=== PATIENT | male | born 1960 | race Caucasian/White ===

== ENCOUNTER 2016-11-03 07:13 | Inpatient (IN) | payer SELFPAY ==
[2016-11-03] MEDS ORDERED: Sodium Chloride 0.9% 500 ML IV STA (07:51)
[2016-11-03] MEDS ORDERED: DiphenhydrAMINE 50 mg/ml Inj IVP STA (07:52)
[2016-11-03 08:00] LABS: BASO % 0.1 % (0.0-2.0); EOS # 0.2 K/uL (0.0-0.7); EOS % 2.2 % (0.0-4.0); HEMATOCRIT 38.2 % (35.0-51.0); LYMPH # 1.1 K/uL (1.0-4.3); MEAN CELL VOLUME 93.6 fL (80.0-94.0); MEAN CORPUSCULAR HEMOGLOBIN 31.6 pg (27.0-31.0); MEAN CORPUSCULAR HGB CONC 33.8 g/dL (33.0-37.0); MONO # 1.3 K/uL (0.0-0.8); MONO % 11.4 % (0.0-10.0); RED CELL DISTRIBUTION WIDTH 13.1 % (11.5-14.5); WHITE BLOOD COUNT 11.1 K/uL (4.8-10.8)
[2016-11-03] MEDS ORDERED: Sodium Chloride 0.9% 1,000 ML ONE (08:00)
[2016-11-03] MEDS ORDERED: DiphenhydrAMINE 50 mg/ml Inj ONE (08:00)
[2016-11-03 08:09] LABS: INR 1.1
[2016-11-03 08:35] LABS: CHLORIDE 104 mmol/L (98-107); POTASSIUM 4.2 mmol/L (3.6-5.2); SODIUM 141 mmol/L (132-148)
--- NOTE | 2016-11-03 08:35 | C.PDOC ---
History Of Present Illness 56-year-old male, presents to the emergency department with complaints of chest pain. Patient states he developed left-sided chest pain that started forty- minutes. Pain is persistent in nature, and radiates into the left arm. Patient states that he recently started taking three new medications, and yesterday evening, he developed hives diffusely. Patient notes he is pending angioplasty next week by Dr South. Denies shortness of breath, fevers, nausea/vomiting, or any other associated symptoms. No other complaints at this time. Chief Complaint (Nursing): Chest Pain History Per: Patient History/Exam Limitations: no limitations Severity: Moderate Past Medical History Reviewed: Historical Data, Nursing Documentation, Vital Signs Vital Signs: Last Vital Signs Temp 98.0 F 11/03/16 16:55 Pulse 78 11/03/16 16:55 Resp 20 11/03/16 16:55 BP 117/71 11/03/16 16:55 Pulse Ox 97 11/03/16 16:55 - Medical History PMH: Back Problems (herniated disc), HTN, Hypercholesterolemia, Kidney Stones Surgical History: Coronary Stent (10/2016) - [facility] Procedures FLUOROSCOPY OF LEFT HEART USING LOW OSMOLAR CONTRAST (10/26/16) FLUOROSCOPY OF MULT COR ART USING L OSM CONTRAST (10/26/16) MEASURE OF CARDIAC SAMPL & PRESSURE, L HEART, PERC APPROACH (10/26/16) Family History: States: [place] (mother at 82), Hypertension (father) - Social History Hx Tobacco Use: Yes Hx Alcohol Use: No Hx Substance Use: Yes (Marijuana) - Immunization History Hx Influenza Vaccination: No Hx Pneumococcal Vaccination: No Review Of Systems Except As Marked, All Systems Reviewed And Found Negative. Constitutional: Negative for: Fever, Chills Cardiovascular: Positive for: Chest Pain Respiratory: Negative for: Shortness of Breath Gastrointestinal: Negative for: Nausea, Vomiting Skin: Positive for: Rash Physical Exam - Physical Exam Appears: Non-toxic, No Acute Distress Skin: Warm, Dry, Rash (generalized urticaria) Head: Atraumatic, Normacephalic Eye(s): bilateral: Normal Inspection, PERRL Nose: Normal Oral Mucosa: Moist Lips: Normal Appearing Neck: Normal ROM Cardiovascular: Rhythm Regular, No Murmur Respiratory: Normal Breath Sounds, No Accessory Muscle Use Gastrointestinal/Abdominal: Soft, No Tenderness Extremity: Normal ROM, Other (R arm volar surface w forearm echymosis from prior procedure) Neurological/Psych: Oriented x3, Normal Speech ED Course And Treatment - Laboratory Results Result Diagrams: 11/03/16 07:55 11/03/16 08:21 ECG: Interpreted By Me, Viewed By Me ECG Rhythm: Sinus Rhythm ECG Interpretation: No Acute Changes Rate From EC O2 Sat by Pulse Oximetry: 96 (on RA) Pulse Ox Interpretation: Normal Progress Note: Case was d/w who covers for . Cardiology consult was called. Disposition - Disposition Disposition: HOSPITALIZED Disposition Time: 13:09 Condition: FAIR - Clinical Impression Clinical Impression: Chest pain, Urticaria - Scribe Statement The provider has reviewed the documentation as recorded by the Scribe (Shady Condon) All medical record entries made by the Scribe were at my direction and personally dictated by me. I have reviewed the chart and agree that the record accurately reflects my personal performance of the history, physical exam, medical decision making, and the department course for this patient. I have also personally directed, reviewed, and agree with the discharge instructions and disposition.
[2016-11-03 08:37] LABS: BILIRUBIN,TOTAL 0.6 mg/dL (0.2-1.3); GFR AFRICAN-AMERICAN > 60
[2016-11-03 08:38] LABS: ALB/GLOB RATIO 1.2 (1.0-2.1); ALKALINE PHOSPHATASE 77 U/L (38-126); ALT/SGPT 31 U/L (21-72); AST/SGOT 20 U/L (17-59); BLOOD UREA NITROGEN 11 mg/dL (9-20); CALCIUM 8.4 mg/dl (8.6-10.4); CARBON DIOXIDE 23 mmol/L (22-30); GLUCOSE,RANDOM 100 mg/dL (75-110); TOTAL PROTEIN 6.5 g/dL (6.3-8.3)
--- NOTE | 2016-11-03 09:06 | RAD ---
PROCEDURE: CHEST RADIOGRAPH, 1 VIEW HISTORY: Chest pain COMPARISON: 10/24/2016. FINDINGS: LUNGS: The lungs are well inflated and clear. PLEURA: No pneumothorax or pleural fluid seen. CARDIOVASCULAR: Normal. OSSEOUS STRUCTURES: No significant abnormalities. VISUALIZED UPPER ABDOMEN: Normal. OTHER FINDINGS: None. IMPRESSION: No active pulmonary disease.
--- NOTE | 2016-11-03 15:10 | CP.PCM.CON ---
<ReginaldodeeNorbertoZack S - Last Filed: 11/03/16 16:20> History of Present Illness - History of Present Illness History of Present Illness: Mr. Ivory is 56 yo gentleman with a PMHx of nephrolithiasis and herniated disc who was recently admitted to and discharge from [facility] in October of 2016. He originally presented to the ED complaining of midsternal chest pain that had acutely worsened. He described his chest pain as a burning sensation with radiation to the neck. He also complained of sharp, intermittent moderate left arm pain and tingling in both hands associated with the chest pain. He was worked up extensively during his last admission to [facility] , which ultimately resulted in cardiac cath identification of 99% occlusion of L circumflex artery and 85-90% occlusion of RCA. He was transferred to [place], where a CAROLIN was placed in the L circumflex artery. Mr. Ivory was discharged home on 10/30/2016. He is returning to [facility] today due to chest pain. He states that the pain started yesterday and is present both at rest and with ambulation. He states the pain radiates into the left upper extremity. He denies any shortness of breath, fever, chills, nausea vomiting. Additionally Mr. Ivory is exhibiting a diffuse, macular rash on the torso, upper extremities and neck. He admits that they are pruritic as well. He states that the rash started yesterday and appear to be improving since he received benadryl. He believes they are medication induced. PMD: Dr. 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 Drinks 3-4 cups of coffee daily Review of Systems - Constitutional Constitutional: As Per HPI - Cardiovascular Cardiovascular: As Per HPI, Chest Pain, Chest Pain at Rest, Pain Radiating to Arm/Neck/Jaw. absent: Dyspnea - Respiratory Respiratory: As Per HPI. absent: Dyspnea - Gastrointestinal Gastrointestinal: absent: Abdominal Pain, Change in Bowel Habits, Constipation, Diarrhea - Integumentary Integumentary: As Per HPI, Pruritus, Rash - Neurological Neurological: Tingling (tingling and paraesthesia of the left arm/hand). absent : Dizziness, Focal Weakness Past Patient History - Infectious Disease Hx of Infectious Diseases: None - Past Medical History & Family History Past Medical History?: Yes - Past Social History Smoking Status: Former Smoker (quit 1 week ago) - CARDIAC Hx Cardiac Disorders: Yes (CAD) Hx Circulatory Problems: Yes Hx Hypercholesterolemia: Yes Hx Hypertension: Yes - RENAL Hx Kidney Stones: Yes - MUSCULOSKELETAL/RHEUMATOLOGICAL Hx Falls: No - PSYCHIATRIC Hx Substance Use: Yes (Marijuana) - SURGICAL HISTORY Hx Coronary Stent: Yes (10/2016) - ANESTHESIA Hx Anesthesia: Yes Hx Anesthesia Reactions: No Hx Malignant Hyperthermia: No Meds Allergies/Adverse Reactions: Allergies Allergy/AdvReac Type Severity Reaction Status Date / Time Iodinated Contrast- Oral and Allergy RASH Verified 11/05/16 10:54 IV Dye clopidogrel AdvReac RASH Verified 11/04/16 15:28 - Medications Medications: Plavix 75mg daily ASA 81mg daily Lipitor 40mg daily Metoprolol Tar 25mg BID Pepcid Physical Exam - Constitutional Appears: No Acute Distress - Head Exam Head Exam: ATRAUMATIC, NORMAL INSPECTION - Eye Exam Eye Exam: EOMI, Normal appearance - ENT Exam ENT Exam: Mucous Membranes Moist - Respiratory Exam Respiratory Exam: Clear to Auscultation Bilateral, NORMAL BREATHING PATTERN. absent: Chest Wall Tenderness, Rales, Rhonchi, Wheezes - Cardiovascular Exam Cardiovascular Exam: REGULAR RHYTHM, +S1, +S2. absent: Gallop, Rubs - GI/Abdominal Exam GI & Abdominal Exam: Soft. absent: Distended, Tenderness - Extremities Exam Extremities exam: Positive for: normal inspection. Negative for: calf tenderness, pedal edema - Neurological Exam Neurological exam: Alert, Oriented x3 - Skin Skin Exam: Rash (As per HPI- diffuse, macular, pruritic, non-blanching rash on torso, arms, and neck) Results - Vital Signs Recent Vital Signs: Last Vital Signs Temp 98.6 F 11/03/16 10:52 Pulse 87 11/03/16 14:28 Resp 16 11/03/16 14:28 BP 118/59 L 11/03/16 14:28 Pulse Ox 98 11/03/16 14:28 - Labs Result Diagrams: 11/03/16 07:55 11/03/16 08:21 Assessment & Plan - Assessment and Plan (Free Text) Assessment: 56 year old male who was recently hospitalized and received Lcx CAROLIN presenting with acute chest pain and diffuse rash Plan: Coronary Artery Disease -s/p L Cx CAROLIN with Dr. South 10/28: RCA 85-90% occluded on cath last week. Planned for intervention in 2-[address] South, however the patient is symptomatic and will likely need intervention sooner. Consult placed to Dr. South from ED- follow up recommendations -Pt's rash is likely secondary to medication reaction from Plavix. Consider switching to Brilinta. -Troponin: negative x1- follow up ROMIs -EKG: NSR, no acute changes -Continue current management ASA 81 mg PO daily Metoprolol Tar 25 mg PO BID Crestor 20mg PO qhs Prior studies: -Cardiac cath 10/27: L main: patent LAD: patent L Cx: mid 99% RCA: distal 85-90% EF: 65%, no WMA, EDP 13 -Echo 10/24: LV function is normal LV EF is WNL No regional wall abnl noted -Exercise stress test 10/24: positive -Lipid panel 10/24 T Cholesterol: 181 LDL: 138 HDL: 28 -HgbA1c 10/24/16: 6.2 -cardiac diet Case discussed with Dr. Hylton <Owen Hylton - Last Filed: 12/07/16 18:37> Results - Vital Signs Recent Vital Signs: Last Vital Signs Temp 97.9 F 11/07/16 07:30 Pulse 61 11/07/16 08:00 Resp 18 11/07/16 07:30 BP 145/85 11/07/16 07:30 Pulse Ox 99 11/07/16 07:30 - Labs Result Diagrams: 11/07/16 07:30 11/07/16 07:30 Attending/Attestation - Attestation I have personally seen and examined this patient.: Yes I have fully participated in the care of the patient.: Yes I have reviewed all pertinent clinical information: Yes Notes (Text): 12/07/16 18:37 start brilanta for plavix rash stent this admission to [facility]
--- NOTE | 2016-11-03 17:58 | CP.PCM.HP ---
<Osiris Cardenas - Last Filed: 11/03/16 19:57> History of Present Illness - History of Present Illness History of Present Illness: CCL "chest pain" 56 year old male with a PMHx of CAD with L circumflex stent, nephrolithiasis presents to the ED complaining of chest pain. Patient was recently discharged from [facility] on 10/30/16 after admission for chest pain with need for cardiac cath. During last admission, cardiac cath done by Dr. South showed 99% occlusion of L circumflex artery and 85-90% occlusion of RCA. He was transferred to [place], where a CAROLIN was placed in the L circumflex artery. On this admission chest pain is mid sternal and radiates to mid neck. Chest pain has been present on and off for the past 3 weeks, which led to the events of the last admission. However, pain worsened over the past few days and is now associated with intermittent moderate left arm pain and tingling in left arm and right hand. Chest pain present with both at rest and with ambulation. Also admits to diffuse, macular rash that started on his back, spread to his torso, upper extremities and neck. Rash is pruritic. He states that the rash started last night and is improving since he receiving Benadryl in the ED. He denies any shortness of breath, fever, chills, nausea vomiting, trouble swallowing, pain with swallowing, swelling. PMD: Dr. Pearce PMHx: nephrolithiasis, CAD s/p L cx stenting October 2016 and RCA 85-90% occluded PSurgHx: tooth implants x2 (Mar 2016), cardiac cath as above Home Meds: Simvastatin 40 mg PO daily, Pecid 20 mg PO BID, Plavix 75 mg PO daily , ASA 81 mg PO Daily, Toprol XL 25 mg PO daily. Allergies: NKDA, maybe now Plavix. FamHx: mother: [place] at age 82, DM, HTN, high cholesterol. Father: [place] at 72, high cholesterol, HTN. Social Hx: 40+ pack year history, smokes less since last admission. Has has 10 cigarets since last admission. Patient used to smoke 1-2 packs per day; denies alcohol use. Admits to occasional marijuana use, with last use Thursday (2 days ago). 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 Drinks 3-4 cups of coffee daily Present on Admission - Present on Admission Any Indicators Present on Admission: No Review of Systems - Constitutional Constitutional: absent: Chills, Fatigue, Fever - EENT Eyes: absent: Blurred Vision, Change in Vision Ears: absent: Dizziness - Cardiovascular Cardiovascular: Chest Pain, Chest Pain at Rest, Chest Pain with Activity. absent: Diaphoresis, Dyspnea, Edema - Respiratory Respiratory: absent: Cough, Dyspnea, Wheezing - Gastrointestinal Gastrointestinal: absent: Abdominal Pain, Constipation, Diarrhea, Dyspepsia, Nausea, Vomiting - Genitourinary Genitourinary: absent: Difficulty Urinating, Dysuria - Musculoskeletal Musculoskeletal: Numbness, Tingling. absent: Back Pain, Myalgias - Integumentary Integumentary: Pruritus, Rash. absent: Wounds - Neurological Neurological: absent: Dizziness, Numbness, Headaches, Tingling, Weakness - Psychiatric Psychiatric: absent: Anxiety - Endocrine Endocrine: absent: Fatigue, Palpitations - Hematologic/Lymphatic Hematologic: absent: Easy Bruising Past Patient History - Infectious Disease Hx of Infectious Diseases: None - Past Medical History & Family History Past Medical History?: Yes - Past Social History Smoking Status: Former Smoker (quit 1 week ago) - CARDIAC Hx Cardiac Disorders: Yes (CAD) Hx Circulatory Problems: Yes Hx Hypercholesterolemia: Yes Hx Hypertension: Yes - RENAL Hx Kidney Stones: Yes - MUSCULOSKELETAL/RHEUMATOLOGICAL Hx Falls: No - PSYCHIATRIC Hx Substance Use: Yes (Marijuana) - SURGICAL HISTORY Hx Coronary Stent: Yes (10/2016) - ANESTHESIA Hx Anesthesia: Yes Hx Anesthesia Reactions: No Hx Malignant Hyperthermia: No Meds Allergies/Adverse Reactions: Allergies Allergy/AdvReac Type Severity Reaction Status Date / Time No Known Allergies Allergy Verified 11/03/16 07:29 Physical Exam - Constitutional Appears: Non-toxic, No Acute Distress - Head Exam Head Exam: NORMAL INSPECTION, NORMOCEPHALIC - Eye Exam Eye Exam: EOMI, Normal appearance - ENT Exam ENT Exam: Mucous Membranes Moist - Neck Exam Neck exam: Positive for: Full Rom, Normal Inspection - Respiratory Exam Respiratory Exam: Clear to Auscultation Bilateral, NORMAL BREATHING PATTERN. absent: Rales, Rhonchi, Wheezes - Cardiovascular Exam Cardiovascular Exam: REGULAR RHYTHM, +S1, +S2, +S4 - GI/Abdominal Exam GI & Abdominal Exam: Normal Bowel Sounds, Soft. absent: Distended, Tenderness - Extremities Exam Extremities exam: Positive for: full ROM, normal inspection. Negative for: pedal edema, tenderness - Back Exam Back exam: FULL ROM, rash noted - Neurological Exam Neurological exam: Alert, Oriented x3 - Psychiatric Exam Psychiatric exam: Normal Affect, Normal Mood - Skin Skin Exam: Dry, Rash (blanchable macular erythematous rash over chest, back and right AC fossa ), Warm Results - Vital Signs Recent Vital Signs: Last Vital Signs Temp 98.0 F 11/03/16 16:55 Pulse 78 11/03/16 16:55 Resp 20 11/03/16 16:55 BP 117/71 11/03/16 16:55 Pulse Ox 97 11/03/16 16:55 - Labs Result Diagrams: 11/03/16 07:55 11/03/16 08:21 Assessment & Plan (1) Chest pain Assessment and Plan: Observe on telemetry floor EBER on admission negative EKG on admission negative F/u EBER and EKG Q8H X 2 f/u TSH in the AM Hgb A1C 10/24/16 was 6.2 FLP 10/24/16 showed elevated LDL 138. * Toprol XL 25 mg PO BID * ASA 81 mg PO Daily * D/C Plavix * Start Brillinta 90 mg PO BID * Crestor 20 mg PO HS Status: Acute (2) CAD (coronary artery disease) Assessment and Plan: Cardiac cath done by Dr. South 10/27/16 showed 99% occlusion of L circumflex artery and 85-90% occlusion of RCA. Patient was transferred to [place], where a CAROLIN was placed in the L circumflex artery. Cardio consult placed- Dr. South and Dr. Hylton- help appreciated Cardiac enzymes as above Heart Healthy diet * Toprol XL 25 mg PO BID * ASA 81 mg PO Daily * Crestor 20 mg PO HS * D/C Plavix * Start Brillinta 90 mg PO BID Status: Acute (3) Urticaria Assessment and Plan: No symptoms of anaphylaxis. Patient was given one dose of Benadryl an IV Solumedrol in the ED. Will order Benadryl as needed. Will avoid Plavix at this time, as it might have caused rash. Monitor for changes. Status: Acute (4) Hyperlipidemia Assessment and Plan: FLP 10/24/16 showed elevated LDL 138. * Crestor 20 mg PO HS Status: Acute (5) IGT (impaired glucose tolerance) Assessment and Plan: Hgb A1C 10/24/16 was 6.2 Moderate carb, heart healthy diet. Status: Acute (6) Prophylactic measure Assessment and Plan: Lovenox 40 SC Daily Pepcid 20 mg PO BID SCDs Status: Acute <Iftikhar Zayas - Last Filed: 11/03/16 20:24> Results - Vital Signs Recent Vital Signs: Last Vital Signs Temp 98.0 F 11/03/16 16:55 Pulse 72 11/03/16 18:00 Resp 20 11/03/16 16:55 BP 117/71 11/03/16 16:55 Pulse Ox 96 11/03/16 19:27 - Labs Result Diagrams: 11/03/16 07:55 11/03/16 08:21 Attending/Attestation - Attestation I have personally seen and examined this patient.: Yes I have fully participated in the care of the patient.: Yes I have reviewed all pertinent clinical information: Yes Notes (Text): 11/03/16 20:23 Patient was seen and examined with the Resident. History, Physical, Assessment and Plan were thoroughly gone over with the Resident. Please note that this is a patient of Dr. Richard Carr and Dr. Boykin was covering for Dr. Carr. However, as the patient does not have insurance, Dr. Boykin would not see patient and therefore his care was transferred to the Hospitalist Service. Iftikhar Munoz D.O.
[2016-11-04] MEDS ORDERED: DiphenhydrAMINE 50 mg/ml Inj IVP STA (04:11)
[2016-11-04 04:12] LABS: BASO # 0.1 K/uL (0.0-0.2); BASO % 0.5 % (0.0-2.0); EOS # 0.1 K/uL (0.0-0.7); EOS % 0.5 % (0.0-4.0); HEMATOCRIT 37.8 % (35.0-51.0); LYMPH # 0.7 K/uL (1.0-4.3); LYMPH % 2.9 % (20.0-40.0); MEAN CELL VOLUME 93.8 fL (80.0-94.0); MEAN CORPUSCULAR HGB CONC 34.1 g/dL (33.0-37.0); MEAN PLATELET VOLUME 8.2 fL (7.2-11.7); MONO % 4.2 % (0.0-10.0); PLATELET COUNT 236 K/uL (130-400); RED CELL DISTRIBUTION WIDTH 13.4 % (11.5-14.5)
[2016-11-04 04:15] LABS: CHLORIDE 103 mmol/L (98-107)
[2016-11-04 04:16] LABS: POTASSIUM 4.4 mmol/L (3.6-5.2); SODIUM 139 mmol/L (132-148)
[2016-11-04 04:19] LABS: ALB/GLOB RATIO 1.2 (1.0-2.1); ALKALINE PHOSPHATASE 83 U/L (38-126); ALT/SGPT 30 U/L (21-72); AST/SGOT 17 U/L (17-59); BILIRUBIN,TOTAL 0.5 mg/dL (0.2-1.3); BLOOD UREA NITROGEN 18 mg/dL (9-20); CALCIUM 9.1 mg/dl (8.6-10.4); CARBON DIOXIDE 20 mmol/L (22-30); GFR AFRICAN-AMERICAN > 60; GLUCOSE,RANDOM 128 mg/dL (75-110)
[2016-11-04 04:50] LABS: THYROID STIMULATING HORMONE 0.51 mIU/L (0.46-4.68)
[2016-11-04 05:38] LABS: NEUTROPHIL 91 % (50-75); TOTAL CELLS COUNTED 100
--- NOTE | 2016-11-04 09:42 | CP.PCM.PN ---
<Zack Zazueta - Last Filed: 11/04/16 15:49> Subjective - Date & Time of Evaluation Date of Evaluation: 11/04/16 Time of Evaluation: 09:38 - Subjective Subjective: PGY2 Progress note- Cardiology- Dr. Hylton Pt seen and examined at bedside. He states that he is feeling better this morning but continues to have intermittent shortness of breath and simultaneous , mild L are pain throughout the night. He denies any chest discomfort. Addtionally, he verbalizes that his rash has spread, involving some regions of his face and head but the pruritis has decreased. Mr. Ivory is forthcoming this morning and explains that yesterday he did not tell the truth about his smoking and drug use since leaving the hospital. He explains that since discharge and re-admission he has smoked about 10 cigarettes and also used marijuana 1x. He denies fever, chills, nausea, vomiting, changes in bowel and bladder habits. Objective - Vital Signs/Intake and Output Vital Signs (last 24 hours): Temp Pulse Resp BP Pulse Ox 97.5 F L 70 20 115/76 98 11/04/16 08:06 11/04/16 08:06 11/04/16 08:06 11/04/16 08:06 11/04/16 08:06 - Medications Medications: Current Medications Aspirin (Aspirin Chewable) 81 mg PO DAILY [facility] Enoxaparin Sodium (Lovenox) 40 mg SC DAILY [facility] Famotidine (Pepcid) 20 mg PO BID [facility] Last Admin: 11/03/16 19:02 Dose: 20 mg Metoprolol Succinate (Toprol Xl) 25 mg PO DAILY [facility] Rosuvastatin Calcium (Crestor) 20 mg PO HS [facility] Last Admin: 11/03/16 22:15 Dose: 20 mg Ticagrelor (Brilinta) 90 mg PO BID [facility] Last Admin: 11/03/16 19:02 Dose: 90 mg - Labs Labs: 11/04/16 04:05 11/04/16 04:05 PT 12.3 SECONDS (9.7-12.2) H 11/03/16 07:55 INR 1.1 11/03/16 07:55 APTT 31 SECONDS (21-34) 11/03/16 07:55 - Constitutional Appears: No Acute Distress - Eye Exam Eye Exam: EOMI, Normal appearance - ENT Exam ENT Exam: Mucous Membranes Moist - Respiratory Exam Respiratory Exam: Clear to Ausculation Bilateral, NORMAL BREATHING PATTERN. absent: Chest Wall Tenderness, Rales, Rhonchi - Cardiovascular Exam Cardiovascular Exam: REGULAR RHYTHM, +S1, +S2 - GI/Abdominal Exam GI & Abdominal Exam: Soft. absent: Distended, Tenderness - Extremities Exam Extremities Exam: Normal Inspection. absent: Calf Tenderness, Pedal Edema - Neurological Exam Neurological Exam: Alert, Awake, Oriented x3 - Psychiatric Exam Psychiatric exam: Normal Mood - Skin Additional comments: macular, erythematous rash present on trunk, upper extremities, and neck- improved appearance from yesterday's examination Assessment and Plan - Assessment and Plan (Free Text) Assessment: 56 year old male who was recently hospitalized and received CAROILN in L circumflex artery presenting with acute chest pain that has resolved and allergic rash to Plavix that is improving Plan: Angina with hx of CAD Observe on telemetry floor EBER negative x3 EKG an admission- no acute changes Echo 10/24: LV function is normal LV EF is WNL No regional wall abnl noted Exercise stress test 10/24: positive Lipid panel 10/24 T Cholesterol: 181 LDL: 138 HDL: 28 Cardiac cath 10/27: L main: patent LAD: patent L Cx: mid 99% RCA: distal 85-90% EF: 65%, no WMA, EDP 13 TSH 0.51 Hgb A1C (10/24/16)- 6.2 Continue medications: Metoprolol tar 25 mg PO BID ASA 81 mg PO Daily Plavix has been discontinued due to allergic reaction and pt was started on Brillinta 90 mg PO BID Crestor 20 mg PO HS Cardiac cath was done by Dr. South (results above) on 10/27/16 showed 99% occlusion of L circumflex artery and 85-90% occlusion of RCA. Patient is s/p CAROLIN placement in the L circumflex artery. Dr. South has been re-consulted by primary team and plan is to transfer patient to [place] tomorrow for cardiac cath with stenting of RCA. NPO at midnight pending procedure as detailed above Case discussed with Dr. Hylton <Owen Hylton - Last Filed: 12/07/16 18:36> Objective - Vital Signs/Intake and Output Vital Signs (last 24 hours): Temp Pulse Resp BP Pulse Ox 97.9 F 61 18 145/85 99 11/07/16 07:30 11/07/16 08:00 11/07/16 07:30 11/07/16 07:30 11/07/16 07:30 - Labs Labs: 11/07/16 07:30 11/07/16 07:30 PT 12.3 SECONDS (9.7-12.2) H 11/03/16 07:55 INR 1.1 11/03/16 07:55 APTT 31 SECONDS (21-34) 11/03/16 07:55 Attending/Attestation - Attestation I have personally seen and examined this patient.: Yes I have fully participated in the care of the patient.: Yes I have reviewed all pertinent clinical information, including history, physical exam and plan: Yes Notes (Text): 12/07/16 18:35 pt will need stent to finish staged procedure
[2016-11-04] MEDS ORDERED: Enoxaparin 40 mg Syringe SC SCH (10:00)
--- NOTE | 2016-11-04 10:16 | CP.PCM.PN ---
<Octavia Lindo E - Last Filed: 11/04/16 16:56> Subjective - Date & Time of Evaluation Date of Evaluation: 11/04/16 Time of Evaluation: 09:45 - Subjective Subjective: Medicine Note ( PGY 1) : Dr. Mike Zayas Patient was seen and examined at bedside. Patient reports that his chest pain is minimal today but it is still intermittent. Patient denies SOB, nausea, vomiting, Abdominal pain, urinary symptoms but admits to intermittent chest pain that he describes as pressure that radiates to his neck, " choking feeling ", constipation and ongoing pruritic macular rash. Patient is aware that he will be leaving for [place] for cardiac catherization tomorrow. Objective - Vital Signs/Intake and Output Vital Signs (last 24 hours): Temp Pulse Resp BP Pulse Ox 97.5 F L 70 20 115/76 98 11/04/16 08:06 11/04/16 08:06 11/04/16 08:06 11/04/16 08:06 11/04/16 08:06 - Medications Medications: Current Medications Aspirin (Aspirin Chewable) 81 mg PO DAILY [facility] Enoxaparin Sodium (Lovenox) 40 mg SC DAILY [facility] Famotidine (Pepcid) 20 mg PO BID [facility] Last Admin: 11/03/16 19:02 Dose: 20 mg Metoprolol Succinate (Toprol Xl) 25 mg PO DAILY [facility] Rosuvastatin Calcium (Crestor) 20 mg PO HS [facility] Last Admin: 11/03/16 22:15 Dose: 20 mg Ticagrelor (Brilinta) 90 mg PO BID [facility] Last Admin: 11/03/16 19:02 Dose: 90 mg - Labs Labs: 11/04/16 04:05 11/04/16 04:05 PT 12.3 SECONDS (9.7-12.2) H 11/03/16 07:55 INR 1.1 11/03/16 07:55 APTT 31 SECONDS (21-34) 11/03/16 07:55 - Constitutional Appears: Well, No Acute Distress - Head Exam Head Exam: ATRAUMATIC, NORMAL INSPECTION - Eye Exam Eye Exam: EOMI, Normal appearance - ENT Exam ENT Exam: Mucous Membranes Moist, Normal Exam - Respiratory Exam Respiratory Exam: Clear to Ausculation Bilateral, NORMAL BREATHING PATTERN - Cardiovascular Exam Cardiovascular Exam: REGULAR RHYTHM, +S1, +S2 - GI/Abdominal Exam GI & Abdominal Exam: Soft, Normal Bowel Sounds - Extremities Exam Extremities Exam: Normal Capillary Refill, Normal Inspection - Neurological Exam Neurological Exam: Alert, Awake, Oriented x3 - Psychiatric Exam Psychiatric exam: Normal Affect, Normal Mood - Skin Skin Exam: Dry, Rash, Warm Assessment and Plan (1) Chest pain Assessment & Plan: Stable Cardiology consult, Dr. Pina---> Help appreciated * As per cardiology, patient will be going for cardiac cath with stent placement (RCA Distal 70-80% occlusion noted on recent diagnostic cardiac catherization 10/28/16) at [facility] Rule out ACS * EBER Negative x3 * TSH: 0.51 ( WNL) * Hgb A1C 10/24/16 was 6.2 * Lipid Panel (10/24/16): T, Cholesterol: 181, LDL: 138, HDL: 28 Medications: * Metoprolol succinate 25 mg PO BID * ASA 81 mg PO Daily * D/C Plavix : Possible allergic reaction * Start Brillinta 90 mg PO BID (11/03/16) * Crestor 20 mg PO HS EKG on admission: Negative for acute changes, NSR @ 66bpm Echocardiogram (10/24/16): * LV function is normal * LV EF is WNL * No regional wall abnormality Stress test (10/24/16): Positive Status: Acute (2) Urticaria Assessment & Plan: Stable Patient was given one dose of Benadryl an IV Solumedrol in the ED. D/C plavix due to possible allergic reaction----> switched to Brilinta 90mg PO BID SANA Continue to monitor rash Medication: * Solumedrol Taper * Benadryl 25mg PO Q6H PRN Status: Acute (3) Hyperlipidemia Assessment & Plan: Lipid Panel (10/24/16): T, Cholesterol: 181, LDL: 138, HDL: 28 Medication: * Crestor 20mg PO HS SANA Status: Acute (4) IGT (impaired glucose tolerance) Assessment & Plan: Hgb A1C 10/24/16 was 6.2 * Heart healthy diet, moderate consistent Status: Acute (5) History of coronary artery disease Assessment & Plan: Cardiology Consult, Dr. Hylton and Dr. South-----> Help appreciated Cardiac cath (10/27/16): 99% occlusion of the left circumflex artery and 85-90% occlusion of RCA distally * Cardiac stent placement (10/28/16): drug-eluding stent in Left circumflex artery * Elevated troponins (10/24/16): 0.0160, 0.0440 Echocardiogram (10/24/16): * LV function is normal * LV EF is WNL * No regional wall abnormality Stress test (10/24/16): Positive Continue home medications: * Metoprolol succinate 25 mg PO BID * ASA 81 mg PO Daily * Crestor 20 mg PO HS * D/C Plavix due to possible allergic reaction ---> Started on Brillinta 90 mg PO BID ( 11/03/16) Status: Acute (6) Prophylactic measure Assessment & Plan: Ambulating SCD Lovenox 40 SC Daily Pepcid 20 mg PO BID Status: Acute <Iftikhar Zayas - Last Filed: 11/05/16 20:04> Objective - Vital Signs/Intake and Output Vital Signs (last 24 hours): Temp Pulse Resp BP Pulse Ox 97 F L 61 18 120/75 95 11/05/16 15:30 11/05/16 16:15 11/05/16 15:30 11/05/16 15:30 11/05/16 15:30 - Medications Medications: Current Medications Acetaminophen (Tylenol 325mg Tab) 650 mg PO Q6 PRN PRN Reason: Pain, Mild (1-3) Aspirin (Aspirin Chewable) 81 mg PO DAILY [facility] Last Admin: 11/05/16 11:58 Dose: Not Given Diphenhydramine HCl (Benadryl) 25 mg PO Q6 PRN PRN Reason: Itching / Pruritus Last Admin: 11/04/16 21:08 Dose: 25 mg Docusate Sodium (Colace) 100 mg PO BID [facility] Last Admin: 11/05/16 17:58 Dose: 100 mg Enoxaparin Sodium (Lovenox) 40 mg SC DAILY [facility] Famotidine (Pepcid) 20 mg PO BID [facility] Last Admin: 11/05/16 17:58 Dose: 20 mg Sodium Chloride (Sodium Chloride 0.9%) 1,000 mls @ 100 mls/hr IV .Q10H [facility] Last Admin: 11/05/16 17:59 Dose: 100 mls/hr Metoprolol Succinate (Toprol Xl) 25 mg PO DAILY [facility] Last Admin: 11/05/16 11:59 Dose: Not Given Prednisone (Prednisone Tab) 5 mg PO DAILY [facility] Rosuvastatin Calcium (Crestor) 20 mg PO HS [facility] Last Admin: 11/04/16 21:08 Dose: 20 mg Ticagrelor (Brilinta) 90 mg PO BID [facility] Last Admin: 11/05/16 17:58 Dose: 90 mg - Labs Labs: 11/04/16 04:05 11/04/16 04:05 PT 12.3 SECONDS (9.7-12.2) H 11/03/16 07:55 INR 1.1 11/03/16 07:55 APTT 31 SECONDS (21-34) 11/03/16 07:55 Attending/Attestation - Attestation I have personally seen and examined this patient.: Yes I have fully participated in the care of the patient.: Yes I have reviewed all pertinent clinical information, including history, physical exam and plan: Yes Notes (Text): 11/05/16 20:01 Patient was seen and examined on 11/04/16. Exam, assessment and plan were thoroughly gone over with the Resident. Macular Rash present on Chest, abodomen, and most of his back. Solumedrol 60 mg IV x 1 dose given to see how he responds. Benadryl 25 mg PO Q6H PRN Pruritus was also ordered. Is the rash secondary to Plavix or secondary to contrast used in initial cardiac catheterization? I discussed this with Dr. Sotuh and agreed that patient should receive Solumedrol 125 mg IV x 1 dose on the morning of 11/05/16 when he is to arrive at [place] for Cardiac Catheterization. Iftikhar Zayas D.O.
[2016-11-04] MEDS: Metoprolol Succinate 25 mg XL Tab PO SCH (10:34)
[2016-11-04] MEDS ORDERED: MethylPREDNISolone 40 mg Vial IVP ONE (14:00)
[2016-11-05 07:03] LABS: PHOSPHOROUS 4.9 mg/dL (2.5-4.5)
--- NOTE | 2016-11-05 08:51 | CARD ---
APPROVED REPORT EKG Measurement Heart [id number] ND [id number] <Conclusion> Normal sinus rhythm Normal ECG
--- NOTE | 2016-11-05 10:41 | CP.PCM.PN ---
<Octavia Lindo Jamie - Last Filed: 11/05/16 18:11> Subjective - Date & Time of Evaluation Date of Evaluation: 11/05/16 Time of Evaluation: 07:05 - Subjective Subjective: Medicine Note ( PGY 1) : Dr. Mike Zayas's service Patient was seen and examined at bedside. Patient was resting comfortably in bed. Patient had no acute issues overnight. Patient denies chest pain, sob, palpitations, nausea, vomiting, abdominal pain, headache, fever, chills and pruritus. Patient will be having a cardiac catherization with stent placement today at [facility]. Objective - Vital Signs/Intake and Output Vital Signs (last 24 hours): Temp Pulse Resp BP Pulse Ox 97.8 F 57 L 20 121/67 97 11/04/16 15:44 11/05/16 00:33 11/04/16 15:44 11/04/16 15:44 11/04/16 15:44 Intake and Output: 11/05/16 11/05/16 06:59 18:59 Intake Total 400 Balance 400 - Medications Medications: Current Medications Aspirin (Aspirin Chewable) 81 mg PO DAILY [facility] Last Admin: 11/05/16 06:52 Dose: 81 mg Diphenhydramine HCl (Benadryl) 25 mg PO Q6 PRN PRN Reason: Itching / Pruritus Last Admin: 11/04/16 21:08 Dose: 25 mg Docusate Sodium (Colace) 100 mg PO BID [facility] Last Admin: 11/04/16 17:27 Dose: 100 mg Famotidine (Pepcid) 20 mg PO BID [facility] Last Admin: 11/04/16 17:27 Dose: 20 mg Metoprolol Succinate (Toprol Xl) 25 mg PO DAILY [facility] Last Admin: 11/04/16 10:34 Dose: 25 mg Rosuvastatin Calcium (Crestor) 20 mg PO HS [facility] Last Admin: 11/04/16 21:08 Dose: 20 mg Ticagrelor (Brilinta) 90 mg PO BID [facility] Last Admin: 11/05/16 06:53 Dose: 90 mg - Labs Labs: 11/04/16 04:05 11/04/16 04:05 PT 12.3 SECONDS (9.7-12.2) H 11/03/16 07:55 INR 1.1 11/03/16 07:55 APTT 31 SECONDS (21-34) 11/03/16 07:55 - Constitutional Appears: Well, No Acute Distress - Head Exam Head Exam: ATRAUMATIC - Eye Exam Eye Exam: EOMI, Normal appearance - ENT Exam ENT Exam: Mucous Membranes Moist, Normal Exam - Respiratory Exam Respiratory Exam: Clear to Ausculation Bilateral, NORMAL BREATHING PATTERN - Cardiovascular Exam Cardiovascular Exam: REGULAR RHYTHM, +S1, +S2 - GI/Abdominal Exam GI & Abdominal Exam: Soft, Normal Bowel Sounds - Extremities Exam Extremities Exam: Normal Capillary Refill, Normal Inspection. absent: Pedal Edema, Tenderness - Neurological Exam Neurological Exam: Alert, Awake, Oriented x3 - Psychiatric Exam Psychiatric exam: Normal Affect, Normal Mood - Skin Skin Exam: Dry, Normal Color, Warm. absent: Rash, Urticaria Assessment and Plan (1) Chest pain Assessment & Plan: Stable Cardiology consult, Dr. Pina---> Help appreciated * As per cardiology, patient will be going for cardiac cath with stent placement (RCA Distal 70-80% occlusion noted on recent diagnostic cardiac catherization 10/28/16) at [facility] today (11/05/16) * RCA Bare Metal stent placement ( 11/05/16) * As per cardiology, patient will need Brillinta 90mg PO bid for 1 year Rule out ACS * EBER Negative x3 * TSH: 0.51 ( WNL) * Hgb A1C 10/24/16 was 6.2 * Lipid Panel (10/24/16): T, Cholesterol: 181, LDL: 138, HDL: 28 Medications: * Metoprolol succinate 25 mg PO BID * ASA 81 mg PO Daily * D/C Plavix : Possible allergic reaction * Start Brillinta 90 mg PO BID (11/03/16) * Crestor 20 mg PO HS EKG on admission: Negative for acute changes, NSR @ 66bpm Echocardiogram (10/24/16): * LV function is normal * LV EF is WNL * No regional wall abnormality Stress test (10/24/16): Positive Status: Acute (2) Urticaria Assessment & Plan: Improved Stable Patient was given one dose of Benadryl an IV Solumedrol in the ED. D/C plavix due to possible allergic reaction----> switched to Brilinta 90mg PO BID SANA Continue to monitor rash Medication: * Solumedrol Taper * Benadryl 25mg PO Q6H PRN Status: Acute (3) Hyperlipidemia Assessment & Plan: Lipid Panel (10/24/16): T, Cholesterol: 181, LDL: 138, HDL: 28 Medication: * Crestor 20mg PO HS SANA Status: Acute (4) IGT (impaired glucose tolerance) Assessment & Plan: Hgb A1C 10/24/16 was 6.2 * Heart healthy diet, moderate consistent Status: Acute (5) History of coronary artery disease Assessment & Plan: Cardiology Consult, Dr. Hylton and Dr. South-----> Help appreciated Cardiac cath (10/27/16): 99% occlusion of the left circumflex artery and 85-90% occlusion of RCA distally * Elevated troponins (10/24/16): 0.0160, 0.0440 * Cardiac stent placement (10/28/16): drug-eluding stent in Left circumflex artery * RCA Bare Metal stent placement ( 11/05/16) Echocardiogram (10/24/16): * LV function is normal * LV EF is WNL * No regional wall abnormality Stress test (10/24/16): Positive Continue home medications: * Metoprolol succinate 25 mg PO BID * ASA 81 mg PO Daily * Crestor 20 mg PO HS * D/C Plavix due to possible allergic reaction ---> Started on Brillinta 90 mg PO BID ( 11/03/16) Status: Acute (6) Prophylactic measure Assessment & Plan: Ambulating SCD Lovenox 40 SC daily---->restart at 10am tomorrow as patient is s/p cardiac cath with stent placement Pepcid 20 mg PO BID Status: Acute <Iftikhar Zayas - Last Filed: 11/05/16 20:08> Objective - Vital Signs/Intake and Output Vital Signs (last 24 hours): Temp Pulse Resp BP Pulse Ox 97 F L 61 18 120/75 95 11/05/16 15:30 11/05/16 16:15 11/05/16 15:30 11/05/16 15:30 11/05/16 15:30 - Medications Medications: Current Medications Acetaminophen (Tylenol 325mg Tab) 650 mg PO Q6 PRN PRN Reason: Pain, Mild (1-3) Aspirin (Aspirin Chewable) 81 mg PO DAILY [facility] Last Admin: 11/05/16 11:58 Dose: Not Given Diphenhydramine HCl (Benadryl) 25 mg PO Q6 PRN PRN Reason: Itching / Pruritus Last Admin: 11/04/16 21:08 Dose: 25 mg Docusate Sodium (Colace) 100 mg PO BID [facility] Last Admin: 11/05/16 17:58 Dose: 100 mg Enoxaparin Sodium (Lovenox) 40 mg SC DAILY [facility] Famotidine (Pepcid) 20 mg PO BID [facility] Last Admin: 11/05/16 17:58 Dose: 20 mg Sodium Chloride (Sodium Chloride 0.9%) 1,000 mls @ 100 mls/hr IV .Q10H [facility] Last Admin: 11/05/16 17:59 Dose: 100 mls/hr Metoprolol Succinate (Toprol Xl) 25 mg PO DAILY [facility] Last Admin: 11/05/16 11:59 Dose: Not Given Prednisone (Prednisone Tab) 5 mg PO DAILY [facility] Rosuvastatin Calcium (Crestor) 20 mg PO HS [facility] Last Admin: 11/04/16 21:08 Dose: 20 mg Ticagrelor (Brilinta) 90 mg PO BID [facility] Last Admin: 11/05/16 17:58 Dose: 90 mg - Labs Labs: 11/04/16 04:05 11/04/16 04:05 PT 12.3 SECONDS (9.7-12.2) H 11/03/16 07:55 INR 1.1 11/03/16 07:55 APTT 31 SECONDS (21-34) 11/03/16 07:55 Attending/Attestation - Attestation I have personally seen and examined this patient.: Yes I have fully participated in the care of the patient.: Yes I have reviewed all pertinent clinical information, including history, physical exam and plan: Yes Notes (Text): 11/05/16 20:05 Patient was seen and examined at 5:30 PM 11/05/16. Exam, assessment and plan were thoroughly gone over with the resident. Patient is s/p bare metal stent in the RCA at [place] earlier today. Cardiac Catheterization site in the Right Femoral area is not bleeding and bandage was changed with the resident. Macular rash that was present on the chest, abdomen, and chest is no longer present. Continue to monitor and if still not present upon re-examination on 11/06/16 then I do not believe that the patient will require additional steroid. If stable, will discharge patient on 11/06/16. Iftikhar Zayas D.O.
--- NOTE | 2016-11-05 10:55 | CP.PCM.PN ---
<Kishan Holder - Last Filed: 11/05/16 15:24> Subjective - Date & Time of Evaluation Date of Evaluation: 11/05/16 Time of Evaluation: 10:55 - Subjective Subjective: Cardiology progress note. Attending: Dr. Hylton Pt was npo after midnight. Pt s/p cardiac cath at [facility] today. Stent in RCA and left circumflex. Dr. South following Pt seen and examined at bedside. no acute distress. Pt feeling well with no complaints. Objective - Vital Signs/Intake and Output Vital Signs (last 24 hours): Temp Pulse Resp BP Pulse Ox 97.8 F 57 L 20 121/67 97 11/04/16 15:44 11/05/16 00:33 11/04/16 15:44 11/04/16 15:44 11/04/16 15:44 Intake and Output: 11/05/16 11/05/16 06:59 18:59 Intake Total 400 Balance 400 - Medications Medications: Current Medications Aspirin (Aspirin Chewable) 81 mg PO DAILY [facility] Last Admin: 11/05/16 06:52 Dose: 81 mg Diphenhydramine HCl (Benadryl) 25 mg PO Q6 PRN PRN Reason: Itching / Pruritus Last Admin: 11/04/16 21:08 Dose: 25 mg Docusate Sodium (Colace) 100 mg PO BID [facility] Last Admin: 11/04/16 17:27 Dose: 100 mg Famotidine (Pepcid) 20 mg PO BID [facility] Last Admin: 11/04/16 17:27 Dose: 20 mg Metoprolol Succinate (Toprol Xl) 25 mg PO DAILY [facility] Last Admin: 11/04/16 10:34 Dose: 25 mg Rosuvastatin Calcium (Crestor) 20 mg PO HS [facility] Last Admin: 11/04/16 21:08 Dose: 20 mg Ticagrelor (Brilinta) 90 mg PO BID [facility] Last Admin: 11/05/16 06:53 Dose: 90 mg - Labs Labs: 11/04/16 04:05 11/04/16 04:05 PT 12.3 SECONDS (9.7-12.2) H 11/03/16 07:55 INR 1.1 11/03/16 07:55 APTT 31 SECONDS (21-34) 11/03/16 07:55 - Constitutional Appears: Non-toxic, No Acute Distress - Head Exam Head Exam: ATRAUMATIC, NORMAL INSPECTION, NORMOCEPHALIC - Eye Exam Eye Exam: EOMI - ENT Exam ENT Exam: Mucous Membranes Moist - Neck Exam Neck Exam: Full ROM, Normal Inspection - Respiratory Exam Respiratory Exam: NORMAL BREATHING PATTERN. absent: Respiratory Distress - Cardiovascular Exam Cardiovascular Exam: +S1, +S2 - GI/Abdominal Exam GI & Abdominal Exam: Soft, Normal Bowel Sounds. absent: Tenderness - Extremities Exam Extremities Exam: Full ROM, Normal Inspection - Neurological Exam Neurological Exam: Alert, Awake, CN II-XII Intact, Oriented x3 - Psychiatric Exam Psychiatric exam: Normal Affect, Normal Mood - Skin Skin Exam: Dry, Intact, Normal Color, Warm Additional comments: Dressing on groin clean, dry, intact Assessment and Plan - Assessment and Plan (Free Text) Assessment: This is a 56 year old male who was recently hospitalized and received CAROLIN in L circumflex artery presenting with acute chest pain that has resolved and allergic rash to Plavix that is improving, pt is s/p cardiac cath and stent at [facility] Chest pain/CAD Observe on telemetry floor trops negative x 3 EKG an admission- no acute changes Echo 10/24: LV function is normal LV ejection fraction is WNL No regional wall abnormalities noted Exercise stress test 10/24: positive Lipid panel 10/24 T Cholesterol: 181 LDL: 138 HDL: 28 Cardiac cath 10/27: L main: patent LAD: patent L Cx: mid 99% RCA: distal 85-90% EF: 65%, no WMA, EDP 13 TSH 0.51 Hgb A1C (10/24/16)- 6.2 pt is s/p drug eluting stent in left circumflex and s/p bare metal stent in right coronary today at [place] Brilinta 90 bid for 1 year continue asa 81 mg po daily continue beta noreen continue statin possible allergy to plavix and contrast encourage ambulation later today Prednisone 5mg po daily for 3-5 days for rash Benadryl 25 po bid for 3-5 days Case discussed with Dr. Hylton <Owen Hylton - Last Filed: 12/07/16 18:35> Objective - Vital Signs/Intake and Output Vital Signs (last 24 hours): Temp Pulse Resp BP Pulse Ox 97.9 F 61 18 145/85 99 11/07/16 07:30 11/07/16 08:00 11/07/16 07:30 11/07/16 07:30 11/07/16 07:30 - Labs Labs: 11/07/16 07:30 11/07/16 07:30 PT 12.3 SECONDS (9.7-12.2) H 11/03/16 07:55 INR 1.1 11/03/16 07:55 APTT 31 SECONDS (21-34) 11/03/16 07:55 Attending/Attestation - Attestation I have personally seen and examined this patient.: Yes I have fully participated in the care of the patient.: Yes I have reviewed all pertinent clinical information, including history, physical exam and plan: Yes Notes (Text): 12/07/16 18:34 stent to RCA stable chest pain eleniu jerry anti platelet
--- NOTE | 2016-11-05 11:18 | CP.PCM.PN ---
Subjective - Date & Time of Evaluation Date of Evaluation: 11/05/16 Time of Evaluation: 11:13 - Subjective Subjective: Patient s/p successful RCA stent (Bare Metal stent) Prior stent in L Cx (Drug Eluting Stent) Patent Recommendations: 1. Since patient has CAROLIN in L Cx: Recommend Brilinta 90 bid for 1 year 2. ASA 81, Statins and B blockers for life time Patient is allergic to Plavix and possibly to contrast also (difficult to differentiate) Ambulate after 2 pm today Prednisone 5mg po daily for 3-5 days for rash Benadryl 25 po bid for 3-[address] Hylton to follow up the patient for Cardiology both as in patient and out patient Please reconsult me if needed Thank you Objective - Vital Signs/Intake and Output Vital Signs (last 24 hours): Temp Pulse Resp BP Pulse Ox 97.8 F 57 L 20 121/67 97 11/04/16 15:44 11/05/16 00:33 11/04/16 15:44 11/04/16 15:44 11/04/16 15:44 Intake and Output: 11/05/16 11/05/16 06:59 18:59 Intake Total 400 Balance 400 - Medications Medications: Current Medications Aspirin (Aspirin Chewable) 81 mg PO DAILY [facility] Last Admin: 11/05/16 06:52 Dose: 81 mg Diphenhydramine HCl (Benadryl) 25 mg PO Q6 PRN PRN Reason: Itching / Pruritus Last Admin: 11/04/16 21:08 Dose: 25 mg Docusate Sodium (Colace) 100 mg PO BID [facility] Last Admin: 11/04/16 17:27 Dose: 100 mg Famotidine (Pepcid) 20 mg PO BID [facility] Last Admin: 11/04/16 17:27 Dose: 20 mg Metoprolol Succinate (Toprol Xl) 25 mg PO DAILY [facility] Last Admin: 11/04/16 10:34 Dose: 25 mg Rosuvastatin Calcium (Crestor) 20 mg PO HS [facility] Last Admin: 11/04/16 21:08 Dose: 20 mg Ticagrelor (Brilinta) 90 mg PO BID [facility] Last Admin: 11/05/16 06:53 Dose: 90 mg - Labs Labs: 11/04/16 04:05 11/04/16 04:05 PT 12.3 SECONDS (9.7-12.2) H 11/03/16 07:55 INR 1.1 11/03/16 07:55 APTT 31 SECONDS (21-34) 11/03/16 07:55
[2016-11-05] MEDS: Metoprolol Succinate 25 mg XL Tab PO SCH (11:59)
[2016-11-05] MEDS: Sodium Chloride 0.9% 1,000 ML IV SCH ×2 (17:59→21:30)
[2016-11-06] MEDS: Sodium Chloride 0.9% 1,000 ML IV SCH ×4 (04:18→16:18)
[2016-11-06 09:00] LABS: BASO # 0.1 K/uL (0.0-0.2); BASO % 0.2 % (0.0-2.0); EOS # 0.1 K/uL (0.0-0.7); EOS % 0.3 % (0.0-4.0); HEMATOCRIT 36.2 % (35.0-51.0); LYMPH # 1.8 K/uL (1.0-4.3); LYMPH % 8.1 % (20.0-40.0); MEAN CELL VOLUME 94.4 fL (80.0-94.0); MEAN CORPUSCULAR HEMOGLOBIN 31.6 pg (27.0-31.0); MEAN CORPUSCULAR HGB CONC 33.5 g/dL (33.0-37.0); MEAN PLATELET VOLUME 8.3 fL (7.2-11.7); MONO # 1.9 K/uL (0.0-0.8); MONO % 8.7 % (0.0-10.0); PLATELET COUNT 236 K/uL (130-400); RED CELL DISTRIBUTION WIDTH 13.5 % (11.5-14.5); WHITE BLOOD COUNT 21.8 K/uL (4.8-10.8)
[2016-11-06 09:07] LABS: CHLORIDE 105 mmol/L (98-107); POTASSIUM 4.1 mmol/L (3.6-5.2); SODIUM 142 mmol/L (132-148)
[2016-11-06 09:09] LABS: ALB/GLOB RATIO 1.1 (1.0-2.1); ALKALINE PHOSPHATASE 71 U/L (38-126); AST/SGOT 17 U/L (17-59); BILIRUBIN,TOTAL 0.5 mg/dL (0.2-1.3); BLOOD UREA NITROGEN 19 mg/dL (9-20); CARBON DIOXIDE 25 mmol/L (22-30); GFR AFRICAN-AMERICAN > 60; TOTAL PROTEIN 6.3 g/dL (6.3-8.3)
[2016-11-06 09:10] LABS: ALT/SGPT 31 U/L (21-72); CALCIUM 8.5 mg/dl (8.6-10.4); GLUCOSE,RANDOM 95 mg/dL (75-110); MAGNESIUM 1.9 mg/dL (1.6-2.3); PHOSPHOROUS 3.2 mg/dL (2.5-4.5)
--- NOTE | 2016-11-06 09:28 | CP.PCM.PN ---
<Kishan Holder - Last Filed: 11/06/16 09:28> Subjective - Date & Time of Evaluation Date of Evaluation: 11/06/16 Time of Evaluation: 09:25 - Subjective Subjective: Cardiology progress note. Attending: Dr. Hylton Pt seen and examined at bedside. No acute distress. No events overnight, but pt did not sleep well. Denies fevers, chills, vomiting, diarrhea, syncope. Objective - Vital Signs/Intake and Output Vital Signs (last 24 hours): Temp Pulse Resp BP Pulse Ox 97.5 F L 68 20 114/69 100 11/06/16 08:48 11/06/16 08:48 11/06/16 08:48 11/06/16 08:48 11/06/16 08:48 Intake and Output: 11/06/16 11/06/16 06:59 18:59 Intake Total 1200 Balance 1200 - Medications Medications: Current Medications Acetaminophen (Tylenol 325mg Tab) 650 mg PO Q6 PRN PRN Reason: Pain, Mild (1-3) Last Admin: 11/06/16 07:59 Dose: 650 mg Aspirin (Aspirin Chewable) 81 mg PO DAILY [facility] Last Admin: 11/05/16 11:58 Dose: Not Given Diphenhydramine HCl (Benadryl) 25 mg PO Q6 PRN PRN Reason: Itching / Pruritus Last Admin: 11/06/16 08:00 Dose: 25 mg Docusate Sodium (Colace) 100 mg PO BID [facility] Last Admin: 11/05/16 17:58 Dose: 100 mg Enoxaparin Sodium (Lovenox) 40 mg SC DAILY [facility] Famotidine (Pepcid) 20 mg PO BID [facility] Last Admin: 11/05/16 17:58 Dose: 20 mg Sodium Chloride (Sodium Chloride 0.9%) 1,000 mls @ 100 mls/hr IV .Q10H [facility] Last Admin: 11/06/16 04:18 Dose: 100 mls/hr Metoprolol Succinate (Toprol Xl) 25 mg PO DAILY [facility] Last Admin: 11/05/16 11:59 Dose: Not Given Prednisone (Prednisone Tab) 5 mg PO DAILY [facility] Rosuvastatin Calcium (Crestor) 20 mg PO HS [facility] Last Admin: 11/05/16 21:30 Dose: 20 mg Ticagrelor (Brilinta) 90 mg PO BID [facility] Last Admin: 11/05/16 17:58 Dose: 90 mg - Labs Labs: 11/06/16 08:52 11/06/16 08:52 PT 12.3 SECONDS (9.7-12.2) H 11/03/16 07:55 INR 1.1 11/03/16 07:55 APTT 31 SECONDS (21-34) 11/03/16 07:55 - Constitutional Appears: Non-toxic, No Acute Distress - Head Exam Head Exam: ATRAUMATIC, NORMAL INSPECTION, NORMOCEPHALIC - Eye Exam Eye Exam: EOMI - ENT Exam ENT Exam: Mucous Membranes Moist - Neck Exam Neck Exam: Full ROM, Normal Inspection - Respiratory Exam Respiratory Exam: Clear to Ausculation Bilateral, NORMAL BREATHING PATTERN. absent: Respiratory Distress - Cardiovascular Exam Cardiovascular Exam: +S1, +S2 - GI/Abdominal Exam GI & Abdominal Exam: Soft, Normal Bowel Sounds. absent: Tenderness - Extremities Exam Extremities Exam: Full ROM, Normal Inspection - Back Exam Back Exam: NORMAL INSPECTION - Neurological Exam Neurological Exam: Alert, Awake, Oriented x3 - Psychiatric Exam Psychiatric exam: Normal Affect, Normal Mood - Skin Skin Exam: Dry, Intact, Normal Color, Warm Assessment and Plan - Assessment and Plan (Free Text) Assessment: This is a 56 year old male who was recently hospitalized and received CAROLIN in L circumflex artery presenting with acute chest pain that has resolved and allergic rash to Plavix that is improving, pt is s/p cardiac cath and stent at [facility] Chest pain/CAD Observe on telemetry floor trops negative x 3 EKG an admission- no acute changes Echo 10/24: LV function is normal LV ejection fraction is WNL No regional wall abnormalities noted Exercise stress test 10/24: positive Lipid panel 10/24 T Cholesterol: 181 LDL: 138 HDL: 28 Cardiac cath 10/27: L main: patent LAD: patent L Cx: mid 99% RCA: distal 85-90% EF: 65%, no WMA, EDP 13 TSH 0.51 Hgb A1C (10/24/16)- 6.2 pt is s/p drug eluting stent in left circumflex and s/p bare metal stent in right coronary yesterday at [facility] Brilinta 90 bid for 1 year continue asa 81 mg po daily continue beta noreen continue statin possible allergy to plavix and contrast encourage ambulation Prednisone 5mg po daily for 3-5 days for rash Benadryl 25 po bid for 3-5 days Case discussed with Dr. Hylton <Owen Hylton - Last Filed: 12/07/16 18:33> Objective - Vital Signs/Intake and Output Vital Signs (last 24 hours): Temp Pulse Resp BP Pulse Ox 97.9 F 61 18 145/85 99 11/07/16 07:30 11/07/16 08:00 11/07/16 07:30 11/07/16 07:30 11/07/16 07:30 - Labs Labs: 11/07/16 07:30 11/07/16 07:30 PT 12.3 SECONDS (9.7-12.2) H 11/03/16 07:55 INR 1.1 11/03/16 07:55 APTT 31 SECONDS (21-34) 11/03/16 07:55 Attending/Attestation - Attestation I have personally seen and examined this patient.: Yes I have fully participated in the care of the patient.: Yes I have reviewed all pertinent clinical information, including history, physical exam and plan: Yes Notes (Text): 12/07/16 18:33 feeling better chest pain better
[2016-11-06 09:45] LABS: NEUTROPHIL 79 % (50-75); REACTIVE LYMPHOCYTES 1 % (0-0); TOTAL CELLS COUNTED 100
[2016-11-06] MEDS: Metoprolol Succinate 25 mg XL Tab PO SCH ×2 (09:53→10:00)
[2016-11-06] MEDS: Enoxaparin 40 mg Syringe SC SCH (09:53)
--- NOTE | 2016-11-06 11:14 | CP.PCM.PN ---
<Santa RosaOctavia jenkins Jamie - Last Filed: 11/06/16 18:07> Subjective - Date & Time of Evaluation Date of Evaluation: 11/06/16 Time of Evaluation: 07:10 - Subjective Subjective: Medicine Note ( PGY 1): Dr. Mike Zayas's service Patient was seen and examined at bedside. Patient states that he is doing well and has no new complaints. Patient had no acute issues overnight. Patient denies chest pain, sob, dizziness, abdominal pain, leg numbness/tingling, nausea , vomiting. Patient still admits to mild pruritus of his chest, back and shoulder area. Patient is tolerating diet, ambulating and had a bowel movement today. Objective - Vital Signs/Intake and Output Vital Signs (last 24 hours): Temp Pulse Resp BP Pulse Ox 97.5 F L 68 20 114/69 100 11/06/16 08:48 11/06/16 08:48 11/06/16 08:48 11/06/16 08:48 11/06/16 08:48 Intake and Output: 11/06/16 11/06/16 06:59 18:59 Intake Total 1200 Balance 1200 - Medications Medications: Current Medications Acetaminophen (Tylenol 325mg Tab) 650 mg PO Q6 PRN PRN Reason: Pain, Mild (1-3) Last Admin: 11/06/16 07:59 Dose: 650 mg Aspirin (Aspirin Chewable) 81 mg PO DAILY [facility] Last Admin: 11/06/16 09:52 Dose: 81 mg Diphenhydramine HCl (Benadryl) 25 mg PO Q6 PRN PRN Reason: Itching / Pruritus Last Admin: 11/06/16 08:00 Dose: 25 mg Docusate Sodium (Colace) 100 mg PO BID [facility] Last Admin: 11/06/16 09:53 Dose: 100 mg Enoxaparin Sodium (Lovenox) 40 mg SC DAILY [facility] Last Admin: 11/06/16 09:53 Dose: 40 mg Famotidine (Pepcid) 20 mg PO BID [facility] Last Admin: 11/06/16 09:53 Dose: 20 mg Sodium Chloride (Sodium Chloride 0.9%) 1,000 mls @ 100 mls/hr IV .Q10H [facility] Last Admin: 11/06/16 04:18 Dose: 100 mls/hr Metoprolol Succinate (Toprol Xl) 25 mg PO DAILY [facility] Last Admin: 11/06/16 10:00 Dose: Not Given Prednisone (Prednisone Tab) 5 mg PO DAILY [facility] Last Admin: 11/06/16 09:53 Dose: 5 mg Rosuvastatin Calcium (Crestor) 20 mg PO HS [facility] Last Admin: 11/05/16 21:30 Dose: 20 mg Ticagrelor (Brilinta) 90 mg PO BID [facility] Last Admin: 11/06/16 09:52 Dose: 90 mg - Labs Labs: 11/06/16 08:52 11/06/16 08:52 PT 12.3 SECONDS (9.7-12.2) H 11/03/16 07:55 INR 1.1 11/03/16 07:55 APTT 31 SECONDS (21-34) 11/03/16 07:55 - Constitutional Appears: Well, No Acute Distress - Head Exam Head Exam: ATRAUMATIC, NORMAL INSPECTION - Eye Exam Eye Exam: EOMI, Normal appearance - ENT Exam ENT Exam: Mucous Membranes Moist, Normal Exam - Respiratory Exam Respiratory Exam: Clear to Ausculation Bilateral, NORMAL BREATHING PATTERN - Cardiovascular Exam Cardiovascular Exam: REGULAR RHYTHM, +S1, +S2 - GI/Abdominal Exam GI & Abdominal Exam: Soft, Normal Bowel Sounds - Extremities Exam Extremities Exam: Normal Capillary Refill, Normal Inspection. absent: Pedal Edema, Tenderness - Neurological Exam Neurological Exam: Alert, Awake, Oriented x3 - Psychiatric Exam Psychiatric exam: Normal Affect, Normal Mood - Skin Skin Exam: Dry, Normal Color, Urticaria, Warm Assessment and Plan (1) Chest pain Assessment & Plan: Stable Cardiology consult, Dr. Pina---> Help appreciated * As per cardiology, patient will be going for cardiac cath with stent placement (RCA Distal 70-80% occlusion noted on recent diagnostic cardiac catherization 10/28/16) at [facility] today (11/05/16) * RCA Bare Metal stent placement ( 11/05/16) * As per cardiology, patient will need Brillinta 90mg PO bid for 1 year * As per cardiology, patient is stable and cleared for discharge tomorrow, (11/07) Rule out ACS * EBER Negative x3 * TSH: 0.51 ( WNL) * Hgb A1C 10/24/16 was 6.2 * Lipid Panel (10/24/16): T, Cholesterol: 181, LDL: 138, HDL: 28 Medications: * Metoprolol succinate 25 mg PO BID * ASA 81 mg PO Daily * D/C Plavix : Possible allergic reaction * Start Brillinta 90 mg PO BID (11/03/16) * Crestor 20 mg PO HS EKG on admission: Negative for acute changes, NSR @ 66bpm Echocardiogram (10/24/16): * LV function is normal * LV EF is WNL * No regional wall abnormality Stress test (10/24/16): Positive Status: Acute (2) Urticaria Assessment & Plan: Resolving Stable Patient was given one dose of Benadryl an IV Solumedrol in the ED. D/C plavix due to possible allergic reaction----> switched to Brilinta 90mg PO BID [facility] Continue to monitor rash Medication: * Continue Solumedrol Taper * Continue Benadryl 25mg PO Q6H PRN Status: Acute (3) Hyperlipidemia Assessment & Plan: Lipid Panel (10/24/16): T, Cholesterol: 181, LDL: 138, HDL: 28 Crestor 20mg PO HS Status: Acute (4) IGT (impaired glucose tolerance) Assessment & Plan: Hgb A1C 10/24/16 was 6.2 * Heart healthy diet, moderate consistent Status: Acute (5) History of coronary artery disease Assessment & Plan: Cardiology Consult, Dr. Hylton and Dr. South-----> Help appreciated Cardiac cath (10/27/16): 99% occlusion of the left circumflex artery and 85-90% occlusion of RCA distally * Elevated troponins (10/24/16): 0.0160, 0.0440 * Cardiac stent placement (10/28/16): drug-eluding stent in Left circumflex artery * RCA Bare Metal stent placement ( 11/05/16) Echocardiogram (10/24/16): * LV function is normal * LV EF is WNL * No regional wall abnormality Stress test (10/24/16): Positive Continue home medications: * Metoprolol succinate 25 mg PO BID * ASA 81 mg PO Daily * Crestor 20 mg PO HS * D/C Plavix due to possible allergic reaction ---> Started on Brillinta 90 mg PO BID ( 11/03/16) Status: Acute (6) Prophylactic measure Assessment & Plan: Ambulating SCD Lovenox 40 SC daily Pepcid 20 mg PO BID Status: Acute <Iftikhar Zayas - Last Filed: 11/07/16 17:44> Objective - Vital Signs/Intake and Output Vital Signs (last 24 hours): Temp Pulse Resp BP Pulse Ox 97.9 F 61 18 145/85 99 11/07/16 07:30 11/07/16 08:00 11/07/16 07:30 11/07/16 07:30 11/07/16 07:30 Intake and Output: 11/07/16 11/07/16 06:59 18:59 Intake Total 2300 Balance 2300 - Labs Labs: 11/07/16 07:30 11/07/16 07:30 PT 12.3 SECONDS (9.7-12.2) H 11/03/16 07:55 INR 1.1 11/03/16 07:55 APTT 31 SECONDS (21-34) 11/03/16 07:55 Attending/Attestation - Attestation I have personally seen and examined this patient.: Yes I have fully participated in the care of the patient.: Yes I have reviewed all pertinent clinical information, including history, physical exam and plan: Yes Notes (Text): 11/07/16 17:41 Patient was seen and examined on 11/06/16. Exam, assessment and plan were thoroughly gone over with resident at that time. Please note that on Skin Exam: macular rash present on LLQ Abdomen and posterior upper back. Therefore will start Prednisone taper at 60 mg-->50 mg--> 40 mg-->30 mg-->20 mg--> 10 mg. I had spoken with Dr. South who informed me that he provided patient with 70 day supply of Brillinta. Spoke with Winch Runner Fernando and she obtained coupon for free 30 day supply of Brilinita and Rx was provided to her and she will have filled in our pharmacy prior to discharging patient on 11/07/16. Patient will follow up with [employer] Equipment Tender Dr. Hylton who will also provide additional samples. Iftikhar Zayas D.O.
[2016-11-07] MEDS: Sodium Chloride 0.9% 1,000 ML IV SCH (02:42)
[2016-11-07 07:43] LABS: BASO # 0.1 K/uL (0.0-0.2); BASO % 0.4 % (0.0-2.0); EOS # 0.2 K/uL (0.0-0.7); EOS % 1.1 % (0.0-4.0); HEMATOCRIT 36.7 % (35.0-51.0); LYMPH # 2.5 K/uL (1.0-4.3); LYMPH % 13.5 % (20.0-40.0); MEAN CELL VOLUME 94.2 fL (80.0-94.0); MEAN CORPUSCULAR HEMOGLOBIN 31.6 pg (27.0-31.0); MEAN CORPUSCULAR HGB CONC 33.6 g/dL (33.0-37.0); MEAN PLATELET VOLUME 7.9 fL (7.2-11.7); MONO # 1.7 K/uL (0.0-0.8); RED CELL DISTRIBUTION WIDTH 13.7 % (11.5-14.5); WHITE BLOOD COUNT 18.4 K/uL (4.8-10.8)
[2016-11-07 07:52] LABS: CHLORIDE 103 mmol/L (98-107)
[2016-11-07 07:53] LABS: POTASSIUM 4.1 mmol/L (3.6-5.2); SODIUM 141 mmol/L (132-148)
[2016-11-07 07:55] LABS: ALKALINE PHOSPHATASE 73 U/L (38-126); BILIRUBIN,TOTAL 0.5 mg/dL (0.2-1.3); BLOOD UREA NITROGEN 16 mg/dL (9-20); CARBON DIOXIDE 27 mmol/L (22-30); GFR AFRICAN-AMERICAN > 60; GLUCOSE,RANDOM 84 mg/dL (75-110)
[2016-11-07 07:56] LABS: ALT/SGPT 34 U/L (21-72); CALCIUM 8.7 mg/dl (8.6-10.4)
[2016-11-07 08:17] VITALS: PULSE 61
--- NOTE | 2016-11-07 08:36 | CP.PCM.CON ---
History of Present Illness - History of Present Illness History of Present Illness: PGY2 progress note- Cardiology- Dr. Hylton Pt seen and examined at bedside. No acute events overnight. He states that he is feeling well this morning and he is nervous about leaving the hospital. He does not complain of any chest pain, SOB, numbness or tingling sensations. He explains that Dr. South has provided him with Brilinta to go home with today and he will be following up with us in the [facility] for continued care. Past Patient History - Infectious Disease Hx of Infectious Diseases: None - Past Medical History & Family History Past Medical History?: Yes - Past Social History Smoking Status: Former Smoker (quit 1 week ago) - CARDIAC Hx Cardiac Disorders: Yes (CAD) Hx Circulatory Problems: Yes Hx Hypercholesterolemia: Yes Hx Hypertension: Yes - RENAL Hx Kidney Stones: Yes - MUSCULOSKELETAL/RHEUMATOLOGICAL Hx Falls: No - PSYCHIATRIC Hx Substance Use: Yes (Marijuana) - SURGICAL HISTORY Hx Coronary Stent: Yes (10/2016) - ANESTHESIA Hx Anesthesia: Yes Hx Anesthesia Reactions: No Hx Malignant Hyperthermia: No Meds Home Medications: Home Medication List Medication Instructions Recorded Confirmed Type DiphenhydrAMINE [Benadryl] 25 mg PO Q6 PRN cap 11/06/16 Rx Ticagrelor [Brilinta] 90 mg PO BID 30 Days 11/06/16 Rx Allergies/Adverse Reactions: Allergies Allergy/AdvReac Type Severity Reaction Status Date / Time Iodinated Contrast- Oral and Allergy RASH Verified 11/05/16 10:54 IV Dye clopidogrel AdvReac RASH Verified 11/04/16 15:28 - Medications Medications: Current Medications Acetaminophen (Tylenol 325mg Tab) 650 mg PO Q6 PRN PRN Reason: Pain, Mild (1-3) Last Admin: 11/06/16 07:59 Dose: 650 mg Aspirin (Aspirin Chewable) 81 mg PO DAILY [facility] Last Admin: 11/06/16 09:52 Dose: 81 mg Diphenhydramine HCl (Benadryl) 25 mg PO Q6 PRN PRN Reason: Itching / Pruritus Last Admin: 11/06/16 08:00 Dose: 25 mg Docusate Sodium (Colace) 100 mg PO BID [facility] Last Admin: 11/06/16 18:12 Dose: 100 mg Enoxaparin Sodium (Lovenox) 40 mg SC DAILY [facility] Last Admin: 11/06/16 09:53 Dose: 40 mg Famotidine (Pepcid) 20 mg PO BID [facility] Last Admin: 11/06/16 18:12 Dose: 20 mg Sodium Chloride (Sodium Chloride 0.9%) 1,000 mls @ 100 mls/hr IV .Q10H [facility] Last Admin: 11/07/16 02:42 Dose: 100 mls/hr Metoprolol Succinate (Toprol Xl) 25 mg PO DAILY [facility] Last Admin: 11/06/16 10:00 Dose: Not Given Prednisone (Prednisone Tab) 50 mg PO ONCE ONE Stop: 11/07/16 09:01 Rosuvastatin Calcium (Crestor) 20 mg PO HS [facility] Last Admin: 11/06/16 21:08 Dose: 20 mg Ticagrelor (Brilinta) 90 mg PO BID [facility] Last Admin: 11/06/16 18:12 Dose: 90 mg Results - Vital Signs Recent Vital Signs: Last Vital Signs Temp 97.5 F L 11/06/16 23:55 Pulse 61 11/07/16 08:00 Resp 20 11/06/16 23:55 BP 143/78 11/06/16 23:55 Pulse Ox 97 11/06/16 23:55 - Labs Result Diagrams: 11/07/16 07:30 11/07/16 07:30 Labs: Laboratory Results - last 24 hr 11/06/16 11/06/16 11/07/16 08:52 08:52 07:30 WBC 21.8 H 18.4 H RBC 3.84 L 3.90 L Hgb 12.1 12.3 Hct 36.2 36.7 MCV 94.4 H 94.2 H MCH 31.6 H 31.6 H MCHC 33.5 33.6 RDW 13.5 13.7 Plt Count 236 247 MPV 8.3 7.9 Neut % (Auto) 82.7 H 76.0 H Lymph % (Auto) 8.1 L 13.5 L [place] % (Auto) 8.7 9.0 Eos % (Auto) 0.3 1.1 Baso % (Auto) 0.2 0.4 Neut # 18.1 H 14.0 H Lymph # 1.8 2.5 [place] # 1.9 H 1.7 H Eos # 0.1 0.2 Baso # 0.1 0.1 Neutrophils % (Manual) 79 H Band Neutrophils % 3 H Lymphocytes % (Manual) 10 L Reactive Lymphs % 1 H Monocytes % (Manual) 7 Platelet Estimate Normal RBC Morphology Normal Sodium 142 Potassium 4.1 Chloride 105 Carbon Dioxide 25 Anion Gap 16 BUN 19 Creatinine 1.0 Est GFR ( Amer) > 60 Est GFR (Non-Af Amer) > 60 Random Glucose 95 Calcium 8.5 L Phosphorus 3.2 Magnesium 1.9 Total Bilirubin 0.5 AST 17 ALT 31 Alkaline Phosphatase 71 Total Protein 6.3 Albumin 3.4 L Globulin 2.9 Albumin/Globulin Ratio 1.1 11/07/16 07:30 WBC RBC Hgb Hct MCV MCH MCHC RDW Plt Count MPV Neut % (Auto) Lymph % (Auto) [place] % (Auto) Eos % (Auto) Baso % (Auto) Neut # Lymph # [place] # Eos # Baso # Neutrophils % (Manual) Band Neutrophils % Lymphocytes % (Manual) Reactive Lymphs % Monocytes % (Manual) Platelet Estimate RBC Morphology Sodium 141 Potassium 4.1 Chloride 103 Carbon Dioxide 27 Anion Gap 16 BUN 16 Creatinine 1.0 Est GFR ( Amer) > 60 Est GFR (Non-Af Amer) > 60 Random Glucose 84 Calcium 8.7 Phosphorus 3.0 Magnesium 2.0 Total Bilirubin 0.5 AST ALT 34 Alkaline Phosphatase 73 Total Protein Albumin 3.4 L Globulin Albumin/Globulin Ratio
--- NOTE | 2016-11-07 08:39 | CP.PCM.PN ---
<Zack Zazueta - Last Filed: 11/07/16 08:48> Subjective - Date & Time of Evaluation Date of Evaluation: 11/07/16 Time of Evaluation: 08:37 - Subjective Subjective: PGY2 progress note- Cardiology- Dr. Hylton Pt seen and examined at bedside. No acute events overnight. He states that he is feeling well this morning and he is nervous about leaving the hospital. He does not complain of any chest pain, SOB, numbness or tingling sensations. He explains that Dr. South has provided him with Brilinta to go home with today and he will be following up with us in the [facility] for continued care. Objective - Vital Signs/Intake and Output Vital Signs (last 24 hours): Temp Pulse Resp BP Pulse Ox 97.5 F L 61 20 143/78 97 11/06/16 23:55 11/07/16 08:00 11/06/16 23:55 11/06/16 23:55 11/06/16 23:55 Intake and Output: 11/07/16 11/07/16 06:59 18:59 Intake Total 2300 Balance 2300 - Medications Medications: Current Medications Acetaminophen (Tylenol 325mg Tab) 650 mg PO Q6 PRN PRN Reason: Pain, Mild (1-3) Last Admin: 11/06/16 07:59 Dose: 650 mg Aspirin (Aspirin Chewable) 81 mg PO DAILY [facility] Last Admin: 11/06/16 09:52 Dose: 81 mg Diphenhydramine HCl (Benadryl) 25 mg PO Q6 PRN PRN Reason: Itching / Pruritus Last Admin: 11/06/16 08:00 Dose: 25 mg Docusate Sodium (Colace) 100 mg PO BID [facility] Last Admin: 11/06/16 18:12 Dose: 100 mg Enoxaparin Sodium (Lovenox) 40 mg SC DAILY [facility] Last Admin: 11/06/16 09:53 Dose: 40 mg Famotidine (Pepcid) 20 mg PO BID [facility] Last Admin: 11/06/16 18:12 Dose: 20 mg Sodium Chloride (Sodium Chloride 0.9%) 1,000 mls @ 100 mls/hr IV .Q10H [facility] Last Admin: 11/07/16 02:42 Dose: 100 mls/hr Metoprolol Succinate (Toprol Xl) 25 mg PO DAILY [facility] Last Admin: 11/06/16 10:00 Dose: Not Given Prednisone (Prednisone Tab) 50 mg PO ONCE ONE Stop: 11/07/16 09:01 Rosuvastatin Calcium (Crestor) 20 mg PO HS [facility] Last Admin: 11/06/16 21:08 Dose: 20 mg Ticagrelor (Brilinta) 90 mg PO BID [facility] Last Admin: 11/06/16 18:12 Dose: 90 mg - Labs Labs: 11/07/16 07:30 11/07/16 07:30 PT 12.3 SECONDS (9.7-12.2) H 11/03/16 07:55 INR 1.1 11/03/16 07:55 APTT 31 SECONDS (21-34) 11/03/16 07:55 - Constitutional Appears: No Acute Distress - Head Exam Head Exam: ATRAUMATIC, NORMOCEPHALIC - Eye Exam Eye Exam: EOMI, Normal appearance - ENT Exam ENT Exam: Mucous Membranes Moist - Respiratory Exam Respiratory Exam: Clear to Ausculation Bilateral - Cardiovascular Exam Cardiovascular Exam: REGULAR RHYTHM, +S1, +S2 - GI/Abdominal Exam GI & Abdominal Exam: Soft. absent: Distended, Tenderness - Extremities Exam Extremities Exam: Normal Inspection. absent: Calf Tenderness, Pedal Edema - Neurological Exam Neurological Exam: Alert, Awake, Oriented x3 Assessment and Plan - Assessment and Plan (Free Text) Assessment: 56 year old gentleman who was recently hospitalized and received CAROLIN in L circumflex artery returning with acute chest pain and allergic rash to Plavix, now s/p stenting of RCA at [facility] and resolved allergic reaction ; awaiting discharge Plan: CAD s/p CAROLIN in L circumflex and bare metal stent in RCA Observed on telemetry floor Labs/DI ROMIs: negative x 3 EKG an admission- no acute changes Echo 10/24: LV function is normal LV ejection fraction is WNL No regional wall abnormalities noted Exercise stress test 10/24: positive Lipid panel 10/24 T Cholesterol: 181 LDL: 138 HDL: 28 Cardiac cath 10/27: L main: patent LAD: patent L Cx: mid 99% RCA: distal 85-90% EF: 65%, no WMA, EDP 13 TSH 0.51 Hgb A1C (10/24/16)- 6.2 Procedures: Cath and stent completed at [facility] by Dr. Brannon-s/p CAROLIN in left circumflex (10/28/16) and now bare metal stent in RCA (11/05/16) Meds: Pt is to continue on Brilinta 90mg PO BID x 1 year- medication has been provided by Dr. South to patient for discharge. continue asa 81 mg po daily continue Metoprolol Succ 25mg PO daily continue Crestor 20mg PO daily Allergic reaction to Plavix: Rash Plavix discontinued Benadryl prn for rash/pruritis Follow up: Pt was instructed to follow up in [facility] for continued care and Brilinta refills with discount voucher. Discharge as per medicine team. Case discussed with Dr. Hylton <Owen Hylton - Last Filed: 12/07/16 18:32> Objective - Vital Signs/Intake and Output Vital Signs (last 24 hours): Temp Pulse Resp BP Pulse Ox 97.9 F 61 18 145/85 99 11/07/16 07:30 11/07/16 08:00 11/07/16 07:30 11/07/16 07:30 11/07/16 07:30 - Labs Labs: 11/07/16 07:30 11/07/16 07:30 PT 12.3 SECONDS (9.7-12.2) H 11/03/16 07:55 INR 1.1 11/03/16 07:55 APTT 31 SECONDS (21-34) 11/03/16 07:55 Attending/Attestation - Attestation I have personally seen and examined this patient.: Yes I have fully participated in the care of the patient.: Yes I have reviewed all pertinent clinical information, including history, physical exam and plan: Yes Notes (Text): 12/07/16 18:32 continue brillanta
[2016-11-07 08:47] LABS: ALB/GLOB RATIO 1.1 (1.0-2.1); TOTAL PROTEIN 6.4 g/dL (6.3-8.3)
[2016-11-07 08:48] LABS: AST/SGOT 21 U/L (17-59)
[2016-11-07 08:57] VITALS: BP 145/85; RESP 18; TEMP 97.9; O2SAT 99
[2016-11-07] MEDS: Metoprolol Succinate 25 mg XL Tab PO SCH ×2 (09:57→10:19)
[2016-11-07] MEDS: Enoxaparin 40 mg Syringe SC SCH (09:59)
--- NOTE | 2016-11-07 10:06 | CP.PCM.DIS ---
<Octavia Lindo E - Last Filed: 11/07/16 17:44> Provider - Provider Date of Admission: 11/05/16 14:24 Attending physician: Iftikhar Zayas MD Time Spent in preparation of Discharge (in minutes): 45 Diagnosis - Discharge Diagnosis (1) Chest pain Status: Acute (2) Urticaria Status: Acute (3) Hyperlipidemia Status: Acute (4) IGT (impaired glucose tolerance) Status: Acute (5) History of coronary artery disease Status: Acute (6) Prophylactic measure Status: Acute Hospital Course - Lab Results Lab Results: Most Recent Lab Values WBC 18.4 K/uL (4.8-10.8) H 11/07/16 07:30 RBC 3.90 Mil/uL (4.40-5.90) L 11/07/16 07:30 Hgb 12.3 g/dL (12.0-18.0) 11/07/16 07:30 Hct 36.7 % (35.0-51.0) 11/07/16 07:30 MCV 94.2 fL (80.0-94.0) H 11/07/16 07:30 MCH 31.6 pg (27.0-31.0) H 11/07/16 07:30 MCHC 33.6 g/dL (33.0-37.0) 11/07/16 07:30 RDW 13.7 % (11.5-14.5) 11/07/16 07:30 Plt Count 247 K/uL (130-400) 11/07/16 07:30 MPV 7.9 fL (7.2-11.7) 11/07/16 07:30 Neut % (Auto) 76.0 % (50.0-75.0) H 11/07/16 07:30 Lymph % (Auto) 13.5 % (20.0-40.0) L 11/07/16 07:30 [place] % (Auto) 9.0 % (0.0-10.0) 11/07/16 07:30 Eos % (Auto) 1.1 % (0.0-4.0) 11/07/16 07:30 Baso % (Auto) 0.4 % (0.0-2.0) 11/07/16 07:30 Neut # 14.0 K/uL (1.8-7.0) H 11/07/16 07:30 Lymph # 2.5 K/uL (1.0-4.3) 11/07/16 07:30 [place] # 1.7 K/uL (0.0-0.8) H 11/07/16 07:30 Eos # 0.2 K/uL (0.0-0.7) 11/07/16 07:30 Baso # 0.1 K/uL (0.0-0.2) 11/07/16 07:30 Neutrophils % (Manual) 79 % (50-75) H 11/06/16 08:52 Band Neutrophils % 3 % (0-2) H 11/06/16 08:52 Lymphocytes % (Manual) 10 % (20-40) L 11/06/16 08:52 Reactive Lymphs % 1 % (0-0) H 11/06/16 08:52 Monocytes % (Manual) 7 % (0-10) 11/06/16 08:52 Toxic Granulation Present 11/04/16 04:05 Platelet Estimate Normal (NORMAL) 11/06/16 08:52 RBC Morphology Normal 11/06/16 08:52 PT 12.3 SECONDS (9.7-12.2) H 11/03/16 07:55 INR 1.1 11/03/16 07:55 APTT 31 SECONDS (21-34) 11/03/16 07:55 Sodium 141 mmol/L (132-148) 11/07/16 07:30 Potassium 4.1 mmol/L (3.6-5.2) 11/07/16 07:30 Chloride 103 mmol/L (98-107) 11/07/16 07:30 Carbon Dioxide 27 mmol/L (22-30) 11/07/16 07:30 Anion Gap 16 (10-20) 11/07/16 07:30 BUN 16 mg/dL (9-20) 11/07/16 07:30 Creatinine 1.0 MG/DL (0.8-1.5) 11/07/16 07:30 Est GFR ( Amer) > 60 11/07/16 07:30 Est GFR (Non-Af Amer) > 60 11/07/16 07:30 Random Glucose 84 mg/dL (75-110) 11/07/16 07:30 Calcium 8.7 mg/dl (8.6-10.4) 11/07/16 07:30 Phosphorus 3.0 mg/dL (2.5-4.5) 11/07/16 07:30 Magnesium 2.0 mg/dL (1.6-2.3) 11/07/16 07:30 Total Bilirubin 0.5 mg/dL (0.2-1.3) 11/07/16 07:30 AST 21 U/L (17-59) 11/07/16 07:30 ALT 34 U/L (21-72) 11/07/16 07:30 Alkaline Phosphatase 73 U/L (38-126) 11/07/16 07:30 Total Creatine Kinase 113 U/L (55-170) 11/04/16 04:05 CK-MB (Mass) 0.70 ng/mL (0.0-3.38) 11/04/16 04:05 Troponin I < 0.0120 ng/mL (0.00-0.120) 11/03/16 08:21 Troponin I, Quant < 0.0120 ng/mL (0.00-0.120) 11/04/16 04:05 Total Protein 6.4 g/dL (6.3-8.3) 11/07/16 07:30 Albumin 3.4 g/dL (3.5-5.0) L 11/07/16 07:30 Globulin 3.0 gm/dL (2.2-3.9) 11/07/16 07:30 Albumin/Globulin Ratio 1.1 (1.0-2.1) 11/07/16 07:30 TSH 3rd Generation 0.51 mIU/L (0.46-4.68) 11/04/16 04:05 - Hospital Course Hospital Course: As per admission: HPI: 56 year old male with a PMHx of CAD with L circumflex stent, nephrolithiasis presents to the ED complaining of chest pain. Patient was recently discharged from [facility] on 10/30/16 after admission for chest pain with need for cardiac cath. During last admission, cardiac cath done by Dr. South showed 99% occlusion of L circumflex artery and 85-90% occlusion of RCA. He was transferred to [place], where a CAROLIN was placed in the L circumflex artery. On this admission chest pain is mid sternal and radiates to mid neck. Chest pain has been present on and off for the past 3 weeks, which led to the events of the last admission. However, pain worsened over the past few days and is now associated with intermittent moderate left arm pain and tingling in left arm and right hand. Chest pain present with both at rest and with ambulation. Also admits to diffuse, macular rash that started on his back, spread to his torso, upper extremities and neck. Rash is pruritic. He states that the rash started last night and is improving since he receiving Benadryl in the ED. He denies any shortness of breath, fever, chills, nausea vomiting, trouble swallowing, pain with swallowing, swelling. Hospital Course: Patient was admitted with the consideration of chest pain/rule out ACS and urticaria. Cardiology consult was placed to Dr. South to consider intervention sooner than the angioplasty of RCA (85-90% occlusion noted on previous diagnostic cardiac catherization) planned for a latter date. Patient continued on appropriate medications for his history of current CAD with angioplasty of the LCA. Patient was also managed on benadryl and solumedrol taper for his urticaria. During the course of admission, patient's recent prescription of plavix was discontinued as it may have been the cause of urticaria, therefore, patient was switched to Brillinta. On 11/05/16, patient had a RCA bare metal stent at [facility]. Patient was then medically managed s/p stent placement. Patient remained clinically stable and was cleared and discharged by his health care team with appropriate follow-up instructions. Pertinent Study Result: EKG: normal sinus rhythm at 66bpm Chest X-ray: No active disease This is a brief summary of events. For a complete course, refer to the medical record Discharge Exam - Head Exam Head Exam: ATRAUMATIC, NORMOCEPHALIC - Eye Exam Eye Exam: EOMI, Normal appearance - ENT Exam ENT Exam: Mucous Membranes Dry, Mucous Membranes Moist - Respiratory Exam Respiratory Exam: Clear to PA & Lateral, NORMAL BREATHING PATTERN - Cardiovascular Exam Cardiovascular Exam: REGULAR RHYTHM, +S1, +S2 - GI/Abdominal Exam GI & Abdominal Exam: Normal Bowel Sounds, Soft - Extremities Exam Extremities exam: normal capillary refill, normal inspection - Neurological Exam Neurological exam: Alert, Normal Gait, Oriented x3 - Psychiatric Exam Psychiatric exam: Normal Affect, Normal Mood - Skin Skin Exam: Normal Color, Warm Discharge Plan - Discharge Medications Prescriptions: Ticagrelor [Brilinta] 90 mg PO BID 30 Days - Follow Up Plan Condition: FAIR Disposition: HOME/ ROUTINE Instructions: Prednisone (By mouth), Ticagrelor (By mouth), Coronary Artery Disease (GEN), Chest Pain (GEN), Coronary Intravascular Stent Placement (GEN), Coronary Angioplasty (GEN) Additional Instructions: Please discharge patient home as per Dr. Iftikhar Zayas and Dr. South Please start the following new medications as prescribed: 1. Brillinta 90mg PO BID - application architect manager was able to obtain a free 30 day supply of Brillinta 2. Prednisone taper to be complete on 11/11/16: -Prednisone 10mg PO 4 tablets (11/08/16) -Prednisone 10mg PO 3 tablets (11/09/16) -Prednisone 10mg PO 2 tablets (11/10/16) -Prednisone 10mg PO 1 tablet (11/11/16) Please resume all home medications as prescribed except for the Plavix 75mg PO daily Please stop Plavix 75mg PO daily Please follow up with your primary care doctor within a week. As per patient, he will follow up [facility] for his primary care. Please follow up with your Glue Maker, Dr. Hylton on Thursday, November 17, 2016, as per patient's conversation with Dr. Hylton Please return to the hospital if symptoms persist. Referrals: Taran South MD [Staff Provider] - <Iftikhar Zayas - Last Filed: 11/07/16 17:46> Provider - Provider Date of Admission: 11/05/16 14:24 Attending physician: Iftikhar Zayas MD Hospital Course - Lab Results Lab Results: Most Recent Lab Values WBC 18.4 K/uL (4.8-10.8) H 11/07/16 07:30 RBC 3.90 Mil/uL (4.40-5.90) L 11/07/16 07:30 Hgb 12.3 g/dL (12.0-18.0) 11/07/16 07:30 Hct 36.7 % (35.0-51.0) 11/07/16 07:30 MCV 94.2 fL (80.0-94.0) H 11/07/16 07:30 MCH 31.6 pg (27.0-31.0) H 11/07/16 07:30 MCHC 33.6 g/dL (33.0-37.0) 11/07/16 07:30 RDW 13.7 % (11.5-14.5) 11/07/16 07:30 Plt Count 247 K/uL (130-400) 11/07/16 07:30 MPV 7.9 fL (7.2-11.7) 11/07/16 07:30 Neut % (Auto) 76.0 % (50.0-75.0) H 11/07/16 07:30 Lymph % (Auto) 13.5 % (20.0-40.0) L 11/07/16 07:30 [place] % (Auto) 9.0 % (0.0-10.0) 11/07/16 07:30 Eos % (Auto) 1.1 % (0.0-4.0) 11/07/16 07:30 Baso % (Auto) 0.4 % (0.0-2.0) 11/07/16 07:30 Neut # 14.0 K/uL (1.8-7.0) H 11/07/16 07:30 Lymph # 2.5 K/uL (1.0-4.3) 11/07/16 07:30 [place] # 1.7 K/uL (0.0-0.8) H 11/07/16 07:30 Eos # 0.2 K/uL (0.0-0.7) 11/07/16 07:30 Baso # 0.1 K/uL (0.0-0.2) 11/07/16 07:30 Neutrophils % (Manual) 79 % (50-75) H 11/06/16 08:52 Band Neutrophils % 3 % (0-2) H 11/06/16 08:52 Lymphocytes % (Manual) 10 % (20-40) L 11/06/16 08:52 Reactive Lymphs % 1 % (0-0) H 11/06/16 08:52 Monocytes % (Manual) 7 % (0-10) 11/06/16 08:52 Toxic Granulation Present 11/04/16 04:05 Platelet Estimate Normal (NORMAL) 11/06/16 08:52 RBC Morphology Normal 11/06/16 08:52 PT 12.3 SECONDS (9.7-12.2) H 11/03/16 07:55 INR 1.1 11/03/16 07:55 APTT 31 SECONDS (21-34) 11/03/16 07:55 Sodium 141 mmol/L (132-148) 11/07/16 07:30 Potassium 4.1 mmol/L (3.6-5.2) 11/07/16 07:30 Chloride 103 mmol/L (98-107) 11/07/16 07:30 Carbon Dioxide 27 mmol/L (22-30) 11/07/16 07:30 Anion Gap 16 (10-20) 11/07/16 07:30 BUN 16 mg/dL (9-20) 11/07/16 07:30 Creatinine 1.0 MG/DL (0.8-1.5) 11/07/16 07:30 Est GFR ( Amer) > 60 11/07/16 07:30 Est GFR (Non-Af Amer) > 60 11/07/16 07:30 Random Glucose 84 mg/dL (75-110) 11/07/16 07:30 Calcium 8.7 mg/dl (8.6-10.4) 11/07/16 07:30 Phosphorus 3.0 mg/dL (2.5-4.5) 11/07/16 07:30 Magnesium 2.0 mg/dL (1.6-2.3) 11/07/16 07:30 Total Bilirubin 0.5 mg/dL (0.2-1.3) 11/07/16 07:30 AST 21 U/L (17-59) 11/07/16 07:30 ALT 34 U/L (21-72) 11/07/16 07:30 Alkaline Phosphatase 73 U/L (38-126) 11/07/16 07:30 Total Creatine Kinase 113 U/L (55-170) 11/04/16 04:05 CK-MB (Mass) 0.70 ng/mL (0.0-3.38) 11/04/16 04:05 Troponin I < 0.0120 ng/mL (0.00-0.120) 11/03/16 08:21 Troponin I, Quant < 0.0120 ng/mL (0.00-0.120) 11/04/16 04:05 Total Protein 6.4 g/dL (6.3-8.3) 11/07/16 07:30 Albumin 3.4 g/dL (3.5-5.0) L 11/07/16 07:30 Globulin 3.0 gm/dL (2.2-3.9) 11/07/16 07:30 Albumin/Globulin Ratio 1.1 (1.0-2.1) 11/07/16 07:30 TSH 3rd Generation 0.51 mIU/L (0.46-4.68) 11/04/16 04:05 Attending/Attestation - Attestation I have personally seen and examined this patient.: Yes I have fully participated in the care of the patient.: Yes I have reviewed all pertinent clinical information, including history, physical exam and plan: Yes Notes (Text): 11/07/16 17:45 Patient was seen and examined earlier today prior to his discharge. Exam, and discharge instructions/medications were thoroughly gone over with the resident. Iftikhar Zayas D.O.
--- NOTE | 2016-11-07 13:19 | CARD ---
APPROVED REPORT EKG Measurement Heart [id number] SD 180P51 [id number] <Conclusion> Normal sinus rhythm Normal ECG
--- NOTE | 2016-11-14 19:37 | CARD ---
APPROVED REPORT EKG Measurement Heart [id number] MA 156P16 [id number] <Conclusion> Sinus bradycardia Otherwise normal ECG
--- NOTE | 2016-11-21 08:24 | CARD ---
APPROVED REPORT EKG Measurement Heart [id number] DC 174P46 [id number] <Conclusion> Normal sinus rhythm Normal ECG
== END 2016-11-07 13:32 | disposition home or self-care (01) | DRG 313 ==
LOC: C.ER 07:13 → C.9E 13:08 → UNDOADMOB 13:08 → OBSVTOIN 14:24 → INTOOBSV 14:24 → C.5T 14:59 → C.9E 14:59 → C.5T 18:14 → OBSVTOIN 11-05 14:24 → C.9E 11-05 14:24
PROVIDERS: ADMIT Family Medicine; ATTEND Family Medicine
DX: R07.9 Chest pain, unspecified (principal); I25.10 Atherosclerotic heart disease of native coronary artery without angina pectoris; I10 Essential (primary) hypertension; E78.5 Hyperlipidemia, unspecified; F12.90 Cannabis use, unspecified, uncomplicated; K59.00 Constipation, unspecified; L50.9 Urticaria, unspecified; Z87.891 Personal history of nicotine dependence; Z95.5 Presence of coronary angioplasty implant and graft